=== PATIENT | female | born 1950 | race Caucasian/White ===

== ENCOUNTER → 2022-09-01 09:50 | Outpatient (BNV) | payer MEDICARE, SELFPAY | PROVIDERS: PCP Family Medicine; Referring Provider Internal Medicine Pulmonary Disease; Visit Provider Internal Medicine Medical Oncology | DX: I26.99 Other pulmonary embolism without acute cor pulmonale (principal) | CPT/HCPCS: 99204; 99213; 99214 ==

== ENCOUNTER 2022-09-15 12:55 | Outpatient (REF) | payer MEDICARE, SELFPAY ==
--- NOTE | ~2022-09-15 | US_ITS ---
EXAMINATION: US SOFT TISSUE, RIGHT AXILLA US SOFT TISSUE, LEFT CHEST WALL CLINICAL INFORMATION: Bilateral mastectomy 2021 ([facility] – [place] Patient notes fullness anterior lateral left chest for several months, initially noted around June (on anticoagulant at that time). Clinical exam also notes focal fullness right axilla. Assess with ultrasound. COMPARISON: Outside CT chest noncontrast 09/12/2022 ([facility] [place]). TECHNIQUE: Bilateral ultrasound is targeted to the areas of clinical concern using grayscale imaging and color Doppler without and with harmonics. Patient is able to point areas of concern at time of imaging. Right axilla is imaged both supine and upright. FINDINGS: Right: There is no cystic or solid mass, architectural abnormality or lymphadenopathy. No skin thickening or edema tracking in soft tissue planes. Several benign nodes with normal [place] architecture are demonstrated, similar to the recent outside CT. The palpable concern corresponds to a normal axillary lymph node measuring 0.8 cm short axis with normal [place] architecture. Left: The palpable fullness anterior lateral left chest corresponds to a spindle-shaped heterogeneous predominantly cystic avascular mass within the soft tissues measuring approximately 1.3 cm in thickness, 8 cm across, and 8 cm in vertical dimension. There is no internal or peripheral color flow. Margins are smooth and well-circumscribed. Similar findings noted on outside CT chest. This most likely represents a benign hematoma chest wall. Results are discussed with the patient at time of visit. US/US breast RT limited IMPRESSION: Right: -Palpable concern corresponds to a benign axillary node 0.8 cm short axis. Left: -Palpable concern corresponds to a spindle-shaped superficial predominantly cystic avascular lesion. Given the clinical history, this is believed to represent a hematoma.
--- NOTE | ~2022-09-15 | US_ITS ---
EXAMINATION: US SOFT TISSUE, RIGHT AXILLA US SOFT TISSUE, LEFT CHEST WALL CLINICAL INFORMATION: Bilateral mastectomy 2021 ([facility] – [place], [place] Patient notes fullness anterior lateral left chest for several months, initially noted around June (on anticoagulant at that time). Clinical exam also notes focal fullness right axilla. Assess with ultrasound. COMPARISON: Outside CT chest noncontrast 09/12/2022 ([facility]). TECHNIQUE: Bilateral ultrasound is targeted to the areas of clinical concern using grayscale imaging and color Doppler without and with harmonics. Patient is able to point areas of concern at time of imaging. Right axilla is imaged both supine and upright. FINDINGS: Right: There is no cystic or solid mass, architectural abnormality or lymphadenopathy. No skin thickening or edema tracking in soft tissue planes. Several benign nodes with normal [place] architecture are demonstrated, similar to the recent outside CT. The palpable concern corresponds to a normal axillary lymph node measuring 0.8 cm short axis with normal [place] architecture. Left: The palpable fullness anterior lateral left chest corresponds to a spindle-shaped heterogeneous predominantly cystic avascular mass within the soft tissues measuring approximately 1.3 cm in thickness, 8 cm across, and 8 cm in vertical dimension. There is no internal or peripheral color flow. Margins are smooth and well-circumscribed. Similar findings noted on outside CT chest. This most likely represents a benign hematoma chest wall. Results are discussed with the patient at time of visit. US/US breast LT limited IMPRESSION: Right: -Palpable concern corresponds to a benign axillary node 0.8 cm short axis. Left: -Palpable concern corresponds to a spindle-shaped superficial predominantly cystic avascular lesion. Given the clinical history, this is believed to represent a hematoma.
== END 2022-09-15 12:56 | disposition home or self-care (01) ==
LOC: HO.MAMMO 12:55
PROVIDERS: Visit Provider Internal Medicine Medical Oncology
DX: N64.89 Other specified disorders of breast (principal)
CPT/HCPCS: 76642

== ENCOUNTER 2023-01-19 12:07 | Outpatient (REF) | payer MEDICARE, SELFPAY ==
--- NOTE | ~2023-01-19 | XR_ITS ---
EXAMINATION: XR LUMBOSACRAL SPINE CLINICAL INFORMATION: Scoliosis COMPARISON: None available. TECHNIQUE: Three views of the lumbosacral spine. FINDINGS: There is a thoracolumbar dextroscoliosis. No acute lumbar compression fractures seen. S1 may be a transitional vertebra. There is multilevel degenerative disc space narrowing. In addition, there is multilevel spondylosis and facet arthrosis. The sacrum is grossly intact. XR/XR lumbar spine 2-3V IMPRESSION: 1. No acute compression fractures. Multilevel degenerative disc space narrowing. 2. Multilevel spondylosis and facet arthrosis. Thoracolumbar dextroscoliosis.
--- NOTE | ~2023-01-19 | XR_ITS ---
EXAMINATION: XR THORACIC SPINE CLINICAL INFORMATION: Scoliosis COMPARISON: CT August 2022 at an outside center. TECHNIQUE: 3 views of the thoracic spine were obtained. FINDINGS: There is an S shaped thoracic scoliosis observed. Slight anterolisthesis C7-T1 and T1-T2. No acute thoracic compression fractures observed. Small endplate spondylitic changes seen. There is multilevel eccentric degenerative disc space narrowing, most pronounced at the approximate T10-T11 level. Postsurgical changes observed superimposing the right hilum and the right cardiac shadow. XR/XR thoracic spine 3V IMPRESSION: 1. S shaped thoracic scoliosis. Slight anterolisthesis C7-T1 and T1-T2. 2. No acute compression fractures. 3. Multilevel degenerative disc space narrowing, most pronounced at the approximate T10-T11 level.
== END 2023-01-19 12:08 | disposition home or self-care (01) ==
LOC: HO.XRAY 12:07
PROVIDERS: Visit Provider Internal Medicine Medical Oncology
DX: M41.9 Scoliosis, unspecified (principal)
CPT/HCPCS: 72072; 72100

== ENCOUNTER 2023-02-07 10:02 | Day surgery (SDC) | payer MEDICARE, SELFPAY ==
--- NOTE | 2023-02-06 10:28 | P.CONAN_ITS ---
Documented by User: Cora Arana NP 02/06/23 10:41 HPI - Anesthesia Eval Consult details Narrative: 72yo F for Upper Endoscopy with Balloon Dilitation Hx of PE/DVT d/t chemo 05/2022. Previously on eliquis, completed tx 08/2022 ? Cardiac arrest r/t chemo 2014 - required epi and O2, no admission. No cardiac ds, does not follow supervisor heading. No adverse reaction to anesthesia. Had port removed recently without issue. AAA with yearly screening through PCP. No change from original finding in 2014. [facility] Active Problems Active Problems: All Active Problems (Updated 02/06/23 @ 06:47 by Tess Mccurdy RN) Bilateral pulmonary embolism (Acute) Past Medical History Medical History Pulmonary embolism Cardiac arrest History of hiatal hernia Weakness Visual impairment Snoring Pneumonia RITA (obstructive sleep apnea) Neuropathy Malignant neoplasm Legal blindness Hypertensive disorder Hyperlipidemia Hypercholesterolemia History of radiation therapy History of chemotherapy Hiatal hernia Headache GERD (gastroesophageal reflux disease) Fibromyalgia Dysphagia Disorder of thyroid Continuous positive airway pressure dependence CVA (cerebral vascular accident) Arthritis Acute respiratory infection (~2019) AAA (abdominal aortic aneurysm) Family History Family History Mother Breast cancer Father No problems noted. Maternal Grandmother Colon cancer Family history of problems with anesthesia: No Surgical History Surgical History History of tonsillectomy History of sinus surgery History of removal of Port-a-Cath History of mastectomy History of eye surgery History of strabismus surgery History of dilatation and curettage History of cardiac catheterization History of lumpectomy of left breast H/O lymph node biopsy History of abdominal surgery History of Problems with Anesthesia: No Social History Social History Household Members: None Are you a primary child care leader to a significant other at home: No Do you presently have visiting nurse or other home services: No Patient Tobacco Use Status: Never used Tobacco Have you been hit, kicked, punched, or otherwise hurt by someone within the past year? If so, by whom?: No Are you DNR?: No Advance Directives: No Advance Directives Information Provided: Yes Recently lost weight without trying: No Eating poorly because of decreased appetite: No Nutrition Risks: No Nutritional Risk Patient : No Gender identity: Female Meds Allergies Allergy/AdvReac Type Severity Reaction Status Date / Time doxorubicin [From Adriamycin] Allergy Severe Unresponsiv Verified 01/06/23 10:34 e cortisone Allergy Unknown Verified 01/06/23 10:34 house dust mite Allergy Runny Nose Verified 01/06/23 10:34 mold Allergy Runny Nose Verified 01/06/23 10:34 paclitaxel Allergy Unknown Verified 01/06/23 10:34 Home Medications Medication Instructions Recorded Confirmed Last Taken Type calcium carbonate 500 mg-vitamin 1 tab PO DAILY 08/22/22 01/06/23 Unknown History D3 5 mcg (200 unit) tablet carvedilol 6.25 mg tablet 6.25 mg PO DAILY 08/22/22 01/06/23 Unknown History levothyroxine 88 mcg tablet 88 mcg PO DAILY 08/22/22 01/06/23 Unknown History lutein 6 mg tablet 6 mg PO DAILY 08/22/22 01/06/23 Unknown History magnesium oxide 400 mg PO DAILY 08/22/22 01/06/23 Unknown History zinc sulfate 50 mg zinc (220 mg) 50 mg PO DAILY 08/22/22 01/06/23 Unknown History capsule Exam Exam Date and Time: February 06, 2023 102 Pertinent Lab Results Pertinent Lab Results: Laboratory Tests 01/06/23 10:30 WBC 5.9 Hgb 12.5 Hct 37.7 Plt Count 241 Sodium 139 Potassium 4.6 Chloride 106 Carbon Dioxide 24 BUN 26 H Creatinine 0.94 Assessment and Plan Assessment Anesthesia Assessment: Chart Reviewed Final Anesthetic Review Family History of Problems with Anesthesia: No History of Problems with Anesthesia: No Documented by User: Derek Clinton MD 02/07/23 11:45 PMFSH Past Medical History Medical History Pulmonary embolism Cardiac arrest History of hiatal hernia Weakness Visual impairment Snoring Pneumonia RITA (obstructive sleep apnea) Neuropathy Malignant neoplasm Legal blindness Hypertensive disorder Hyperlipidemia Hypercholesterolemia History of radiation therapy History of chemotherapy Hiatal hernia Headache GERD (gastroesophageal reflux disease) Fibromyalgia Dysphagia Disorder of thyroid Continuous positive airway pressure dependence CVA (cerebral vascular accident) Arthritis Acute respiratory infection (~2019) AAA (abdominal aortic aneurysm) Family History Family History Mother Breast cancer Father No problems noted. Maternal Grandmother Colon cancer Surgical History Surgical History History of tonsillectomy History of sinus surgery History of removal of Port-a-Cath History of mastectomy History of eye surgery History of strabismus surgery History of dilatation and curettage History of cardiac catheterization History of lumpectomy of left breast H/O lymph node biopsy History of abdominal surgery Social History Social History Household Members: None Are you a primary child care leader to a significant other at home: No Do you presently have visiting nurse or other home services: No Patient Tobacco Use Status: Never used Tobacco Have you been hit, kicked, punched, or otherwise hurt by someone within the past year? If so, by whom?: No Are you DNR?: No Advance Directives: No Advance Directives Information Provided: Yes Recently lost weight without trying: No Eating poorly because of decreased appetite: No Nutrition Risks: No Nutritional Risk Patient : No Gender identity: Female Meds Allergies Allergy/AdvReac Type Severity Reaction Status Date / Time doxorubicin [From Adriamycin] Allergy Severe Unresponsiv Verified 01/06/23 10:34 e cortisone Allergy Unknown Verified 01/06/23 10:34 house dust mite Allergy Runny Nose Verified 01/06/23 10:34 mold Allergy Runny Nose Verified 01/06/23 10:34 paclitaxel Allergy Unknown Verified 01/06/23 10:34 Home Medications Medication Instructions Recorded Confirmed Last Taken Type calcium carbonate 500 mg-vitamin 1 tab PO DAILY 08/22/22 01/06/23 Unknown Histor y D3 5 mcg (200 unit) tablet carvedilol 6.25 mg tablet 6.25 mg PO DAILY 08/22/22 01/06/23 Unknown History levothyroxine 88 mcg tablet 88 mcg PO DAILY 08/22/22 01/06/23 Unknown History lutein 6 mg tablet 6 mg PO DAILY 08/22/22 01/06/23 Unknown History magnesium oxide 400 mg PO DAILY 08/22/22 01/06/23 Unknown History zinc sulfate 50 mg zinc (220 mg) 50 mg PO DAILY 08/22/22 01/06/23 Unknown History capsule Exam Airway Mallampati Class: II TM Dist: >3cm Neck ROM: Limited Heart: rrr Lungs: cta Assessment and Plan Assessment Anesthesia Assessment: Anesthesia Plan Discussed Final Anesthetic Review NPO: Yes ASA Class: IV Final Preanesthetic Review: No Changes in Pt Med Stat, Meds/Allgs Chart Reviewed, Consent Obtained/Reviewed and Anes Risks/Benef Reviewed Patient Risk: Intermediate Procedure Risk: Intermediate Anesthetic Plan Anesthetic Plan: MAC: and Agree w/ Assess. and Plan Disposition: Standard PACU
[2023-02-07 11:16] VITALS: BP 116/74; PULSE 73; RESP 18; TEMP 36.4; O2SAT 98; BMI 28.3
--- NOTE | 2023-02-07 11:55 | MHC.SHP ---
Pre-Procedural Eval Section A Date of Service: 02/07/23 The patient is an INPATIENT: No Changes since office visit: No Cold of Flu in the past 2 weeks, No New Medical Problems, No Changes in Medication and No Patient answered all questions The History & Physical has been completed within 30 days and I have reviewed it.: Yes Section B Chief Complaint: Esophageal obstruction, other dysphagia Allergies: Allergies Allergy/AdvReac Type Severity Reaction Status Date / Time doxorubicin [From Adriamycin] Allergy Severe Unresponsiv Verified 01/06/23 10:34 e cortisone Allergy Unknown Verified 01/06/23 10:34 house dust mite Allergy Runny Nose Verified 01/06/23 10:34 mold Allergy Runny Nose Verified 01/06/23 10:34 paclitaxel Allergy Unknown Verified 01/06/23 10:34 Plan I have reviewed the history and physical and performed a pertinent physical examination on my patient. No changes have occurred unless specified. Time Spent With Patient Time: Total time managing care of this patient today ____ minutes.
--- NOTE | 2023-02-07 12:31 | PM.OP ---
Brief Operative Note Date of Service: 02/07/23 Pre-op diagnosis: dysphagia Post-op diagnosis: same Procedure: EGD Surgeon: Jd Tripp Anesthesia: MAC Was an Volumetric Weigher used for this Procedure?: No Estimated blood loss (mL): 2 Pathology: other Condition: stable Disposition: PACU
[2023-02-07 12:34] VITALS: BP 107/59; PULSE 69; RESP 16; TEMP 36.7; O2SAT 98
--- NOTE | 2023-02-07 12:46 | OP_ITS ---
DATE OF SERVICE: 02/07/2023 SURGEON: Jd Tripp MD INDICATIONS: Dysphagia and history of Schatzki ring. PREOPERATIVE DIAGNOSIS: POSTOPERATIVE DIAGNOSIS: PROCEDURE PERFORMED: Upper endoscopy with balloon dilation and biopsy. ESTIMATED BLOOD LOSS: COMPLICATIONS: ANESTHESIA: Monitored anesthesia care. ASSISTANTS: SPECIMENS: DESCRIPTION OF PROCEDURE: A history and physical was performed. The risks and benefits of the procedure were explained to the patient. Informed consent was obtained. The patient was placed in the left lateral decubitus position. The Olympus video gastroscope was introduced into the esophagus, stomach, and duodenum. Examination was performed. The scope was removed. She tolerated the procedure well and was returned to the recovery area in stable condition. FINDINGS: Esophagus: There was a nonobstructive Schatzki ring at the EG junction. The scope easily passed through this. Balloon dilation of the Schatzki ring was performed at 18 and 20 mm with a balloon passed through the scope and inflated to its recommended pressure for 60 seconds. The ring was widely patent at the termination of the procedure. Stomach: There was a small hiatal hernia with several erosions at the level of the hiatal hernia. Antral biopsies were obtained. Duodenum: The bulb and 2nd portion were normal. IMPRESSION: 1. Schatzki ring. 2. Hiatal hernia. RECOMMENDATION: Follow up the biopsy results. MD POLLO Hester/ANNETTEL / [id number]
[2023-02-07 12:49] VITALS: BP 101/67; PULSE 80; RESP 22; O2SAT 98
[2023-02-07 12:57] VITALS: BP 115/73; PULSE 67; RESP 16; TEMP 36.7; O2SAT 97
== END 2023-02-07 13:45 | disposition home or self-care (01) ==
PROVIDERS: PCP Family Medicine; Visit Provider Internal Medicine Gastroenterology
PROC: (CPT 43249; principal; 2023-02-07 11:30)
DX: R13.19 Other dysphagia (principal); K22.2 Esophageal obstruction; K44.9 Diaphragmatic hernia without obstruction or gangrene; I69.354 Hemiplegia and hemiparesis following cerebral infarction affecting left non-dominant side; I10 Essential (primary) hypertension; G62.9 Polyneuropathy, unspecified; Z85.3 Personal history of malignant neoplasm of breast; Z90.13 Acquired absence of bilateral breasts and nipples; Z92.21 Personal history of antineoplastic chemotherapy; Z92.3 Personal history of irradiation; Z86.711 Personal history of pulmonary embolism; G47.33 Obstructive sleep apnea (adult) (pediatric); Z79.899 Other long term (current) drug therapy; Z99.89 Dependence on other enabling machines and devices
CPT/HCPCS: 43249; 43239; 88305; 88342; C1726

== ENCOUNTER 2023-07-26 08:07 | Outpatient (REF) | payer MEDICARE, SELFPAY ==
--- NOTE | ~2023-07-26 | XR_ITS ---
EXAMINATION: 1. RADIOGRAPHS RIGHT KNEE 2. RADIOGRAPHS LEFT KNEE CLINICAL INFORMATION: Bilateral knee pain COMPARISON: None TECHNIQUE: 3 views of each knee were obtained FINDINGS: Right knee: No fracture or dislocation. Small suprapatellar joint effusion. Mild narrowing of the medial joint space height. Small tricompartmental marginal osteophytes. Mild soft tissue swelling the anterior knee. Left knee: No fracture or dislocation. No suprapatellar joint effusion. Minimal narrowing of the medial joint space height.. Small tricompartmental marginal osteophytes. Minimal soft tissue swelling of the anterior knee. XR/XR knee LT 3V IMPRESSION: Mild degenerative changes of both knees, slightly more prominent on the right.
--- NOTE | ~2023-07-26 | XR_ITS ---
EXAMINATION: 1. RADIOGRAPHS RIGHT KNEE 2. RADIOGRAPHS LEFT KNEE CLINICAL INFORMATION: Bilateral knee pain COMPARISON: None TECHNIQUE: 3 views of each knee were obtained FINDINGS: Right knee: No fracture or dislocation. Small suprapatellar joint effusion. Mild narrowing of the medial joint space height. Small tricompartmental marginal osteophytes. Mild soft tissue swelling the anterior knee. Left knee: No fracture or dislocation. No suprapatellar joint effusion. Minimal narrowing of the medial joint space height.. Small tricompartmental marginal osteophytes. Minimal soft tissue swelling of the anterior knee. XR/XR knee RT 3V IMPRESSION: Mild degenerative changes of both knees, slightly more prominent on the right.
--- NOTE | ~2023-07-26 | XR_ITS ---
EXAMINATION: XR SCOLIOSIS SERIES CLINICAL INFORMATION: Scoliosis. COMPARISON: Thoracic and lumbar spine radiographs 01/19/2023. TECHNIQUE: Standing upright PA and lateral radiographs of the total spine were obtained. FINDINGS: There are 12 rib-bearing thoracic vertebra and 5 nonrib-bearing lumbar vertebra. Cervical spinal segmentation cannot be assessed on this examination due to acquisition technique. There is no identifiable dysraphism. Global parmeters Coronal truncal balance: 1.3 cm positive Coronal regional parameters (Ramirez angle) Primary curve: 27 degrees, apex right at L2 Secondary curve: 12 degrees, apex left at T10 Lungs are clear and well expanded. No focal consolidative disease, pleural effusion, or pneumothorax. The cardiac silhouette and upper mediastinal contours are normal. Visualized bowel gas pattern is normal. Solid organ contours are normal. No worrisome lytic or blastic osseous lesion within the ftctv-ex-hccv of this examination. XR/XR scoliosis survey IMPRESSION: Spinal scoliosis as described above.
== END 2023-07-26 08:08 | disposition home or self-care (01) ==
LOC: HO.HOSX 08:07
PROVIDERS: PCP Family Medicine; Visit Provider Physical Medicine & Rehabilitation
DX: M25.50 Pain in unspecified joint (principal); M25.561 Pain in right knee; M25.562 Pain in left knee; M54.50 Low back pain, unspecified; G89.29 Other chronic pain; M41.9 Scoliosis, unspecified; G62.9 Polyneuropathy, unspecified; M79.7 Fibromyalgia; Z92.21 Personal history of antineoplastic chemotherapy; Z86.73 Personal history of transient ischemic attack (TIA), and cerebral infarction without residual deficits
CPT/HCPCS: 72082; 73562; 99202

== ENCOUNTER 2023-07-26 08:07 | Outpatient (AMB) | payer MEDICARE, SELFPAY ==
[2023-07-26 08:27] VITALS: BMI 29.3
--- NOTE | 2023-07-26 08:27 | A.OFFVIS_ITS ---
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 She has had ongoing lower back pain for many years now (20+) she has an extensive medical history Pulmonary Emboli, Bilateral DVT, Breast Cancer, Fibromyalgia, Thyroid Disease, Scoliosis. She was referred by Dr. Jacobs She has been previously treated with a chiropractor which was not helpful (2004). She had multiple flair ups of sciatic pain over the years. History of acupuncture which was very very helpful, but she has not been in some time as she moved. She has pain in the lower back at all times, she explains that her history of strokes has caused her left ankle to become weak and rolls. 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 She had done signifcant Physical therapy he help her regain functions. Allergies doxorubicin [From Adriamycin] Allergy (Severe, Verified 07/11/23 09:35) Unresponsive cortisone Allergy (Verified 07/11/23 09:35) Unknown house dust mite Allergy (Verified 07/11/23 09:35) Runny Nose mold Allergy (Verified 07/11/23 09:35) Runny Nose paclitaxel Allergy (Verified 07/11/23 09:35) Unknown HPI HPI Comments History of Present Illness Details History of stroke 2000, 2017 (TIAs), left sided residuals/left foot; PE but not on anticoagulation; chest hematoma side effect from blood thinner 2022; breast CA 2014 lumpectomy and radiation, recurrence 2021 s/p double mastectomy, chemotherapy. History of Sciatica in 1969-s. Patient denies having same type of sciatica now. Baseline left foot numbness from stroke. But now numbness also on both hands, attributed from chemotherapy. Question history of RA -mentioned by a curatorial assistant in [place]? Moved here a year ago, from [facility]. Oncologist now is Dr. Jacobs. PCP is Dr. Macarena Snow. She drives. Uses walker. Lower back, going more right side, leg cramps bilateral. Cramps can occur at night or even during the day, while seated. When she walks, feels like leg loses sensation and may give out, described as warmth. ROS - upper back/trapezius itch? - myofascial knee pain - from falls in past Treatment: does exercises in residence home massage therapy, acupuncture (helped), chiropractor back in - saw physiatry for fibromyalgia and pain, did exercises, pain med (tramadol) ibuprofen prn last PT 2020 no injections no recent lumbar MRI wears orthotics - helping with standing up straight [facility] Medical History (Updated 07/26/23 @ 09:25 by Hui Li MD) Chronic back pain Pulmonary embolism Cardiac arrest History of hiatal hernia Weakness Visual impairment Snoring Pneumonia RITA (obstructive sleep apnea) Neuropathy Malignant neoplasm Legal blindness Hypertensive disorder Hyperlipidemia Hypercholesterolemia History of radiation therapy History of chemotherapy Hiatal hernia Headache GERD (gastroesophageal reflux disease) Fibromyalgia Dysphagia Disorder of thyroid Continuous positive airway pressure dependence CVA (cerebral vascular accident) Arthritis Acute respiratory infection (~2018) AAA (abdominal aortic aneurysm) Surgical History History of tonsillectomy History of sinus surgery History of removal of Port-a-Cath History of mastectomy History of eye surgery History of strabismus surgery History of dilatation and curettage History of cardiac catheterization History of lumpectomy of left breast H/O lymph node biopsy History of abdominal surgery Family History Mother Breast cancer Father No problems noted. Maternal Grandmother Colon cancer Social History Household Members: None Are you a primary career technical education teacher to a significant other at home: No Do you presently have visiting nurse or other home services: No Patient Tobacco Use Status: Never used Tobacco Gender identity: Female Review of Systems Const All systems reviewed & are unremarkable except as noted in HPI and below Physical Exam Vital Signs: BMI result Body Mass Index 29.3 Constitutional: Patient appears to be in no acute distress, well nourished and well developed. Patient was appropriately conversant and oriented. Good historian. MSK: Negative spurling sign. Cervical ROM still within normal. Lumbar ROM deferred. Tightness noted on right upper trapezius. Diffusely tender almost everywhere but most tender on right SI region and right GT. Strength is 5/5 in all muscle groups tested. No increased tone noted. Neurological: Left dorsiflexion 3+/5 but rest of MMT 5/5. Ziegler?s negative bilaterally. Babinski was down going bilaterally. Clonus was negative. Uses walker. Results Reviewed Results Reviewed: I independently reviewed the results of the following: No significant scoliosis seen on thoracic and lumbar x-rays. Loss of disc space noted L4-5 L5-S1. Ordering Physician: Derek Jacobs MD Date of Service: 01/19/23 Procedure(s): XR lumbar spine 2-3V Accession Number(s): [id number] cc: Derek Jacobs MD~ EXAMINATION: XR LUMBOSACRAL SPINE CLINICAL INFORMATION: Scoliosis COMPARISON: None available. TECHNIQUE: Three views of the lumbosacral spine. FINDINGS: There is a thoracolumbar dextroscoliosis. No acute lumbar compression fractures seen. S1 may be a transitional vertebra. There is multilevel degenerative disc space narrowing. In addition, there is multilevel spondylosis and facet arthrosis. The sacrum is grossly intact. XR/XR lumbar spine 2-3V IMPRESSION: 1. No acute compression fractures. Multilevel degenerative disc space narrowing. 2. Multilevel spondylosis and facet arthrosis. Thoracolumbar dextroscoliosis. Ordering Physician: Derek Jacobs MD Date of Service: 01/19/23 Procedure(s): XR thoracic spine 3V Accession Number(s): [id number] cc: Derek Jacobs MD~ EXAMINATION: XR THORACIC SPINE CLINICAL INFORMATION: Scoliosis COMPARISON: CT August 2022 at an outside center. TECHNIQUE: 3 views of the thoracic spine were obtained. FINDINGS: There is an S shaped thoracic scoliosis observed. Slight anterolisthesis C7-T1 and T1-T2. No acute thoracic compression fractures observed. Small endplate spondylitic changes seen. There is multilevel eccentric degenerative disc space narrowing, most pronounced at the approximate T10-T11 level. Postsurgical changes observed superimposing the right hilum and the right cardiac shadow. XR/XR thoracic spine 3V IMPRESSION: 1. S shaped thoracic scoliosis. Slight anterolisthesis C7-T1 and T1-T2. 2. No acute compression fractures. 3. Multilevel degenerative disc space narrowing, most pronounced at the approximate T10-T11 level. I reviewed records from the following: Dr. Jacobs Assessment & Plan Assessment & Plan (1) Chronic back pain: Code(s): M54.9 - Dorsalgia, unspecified; G89.29 - Other chronic pain Qualifiers: Back pain laterality: left Back pain location: low back pain Sciatica presence: without sciatica Qualified Code(s): M54.50 - Low back pain, unspecified; G89.29 - Other chronic pain (2) Arthralgia of knee: Code(s): M25.569 - Pain in unspecified knee Qualifiers: Laterality: bilateral Qualified Code(s): M25.561 - Pain in right knee; M25.562 - Pain in left knee (3) Scoliosis: Code(s): M41.9 - Scoliosis, unspecified Qualifiers: Scoliosis type: unspecified scoliosis Spinal region: thoracolumbar Qualified Code(s): M41.9 - Scoliosis, unspecified (4) Neuropathy: Comment: from chemo Code(s): G62.9 - Polyneuropathy, unspecified (5) Fibromyalgia: Code(s): M79.7 - Fibromyalgia (6) CVA (cerebral vascular accident): Comment: 2001 and 2013 slight left side weakness, again in 2017 and 2018 Code(s): I63.9 - Cerebral infarction, unspecified Qualifiers: CVA mechanism: other Qualified Code(s): I63.89 - Other cerebral infarction (7) History of chemotherapy: Code(s): Z92.21 - Personal history of antineoplastic chemotherapy Plan Chronic back pain, in setting of 73 year old with history of neuropathy, previous strokes with left sided residual, history of breast CA and chemotherapy. She is wondering about scoliosis and knee arthralgia. Complaining of leg cramps but denies radiculopathy signs. Would start with getting scoliosis series xray and knee xrays done today. Patient had undergone adequate conservative management without improvement of condition. It would be reasonable to obtain further imaging such as MRI. An MRI would help rule out any serious condition, guide treatment and assess prognosis for recovery. Specifically ruling out spinal stenosis that would cause claudication. Assessment and plan discussed with patient, and patient was agreeable. All questions were answered thoroughly. Total of 60 minute spent today including chart review, results review, history taking, physical examination, discussion of assessment and plan, and coordination of care. Hui Li MD, CORRINA Board Certified, [place] [employer] and [employer] (ABPMR) Board Certified, [place] [employer] Electro[employer] (ABEM) Orders: Orders XR scoliosis survey Today M41.9 - Scoliosis, unspecified XR knee RT 3V Today M25.569 - Pain in unspecified knee XR knee LT 3V Today M25.50 - Pain in unspecified joint MR lumbar spine wo con Today M48.061 - Spinal stenosis, lumbar region without neurogenic claudication Coding Level of Care Code New Pt Level 5 (70299) Diagnoses Chronic left-sided low back pain without sciatica M54.50; G89.29 Back pain laterality: left Back pain location: low back pain Sciatica presence: without sciatica Arthralgia of both knees M25.561; M25.562 Laterality: bilateral Scoliosis of thoracolumbar spine, unspecified scoliosis type M41.9 Scoliosis type: unspecified scoliosis Spinal region: thoracolumbar Neuropathy G62.9 Fibromyalgia M79.7 Cerebrovascular accident (CVA) due to other mechanism I63.89 CVA mechanism: other History of chemotherapy Z92.21
== END 2023-07-26 12:30 | disposition home or self-care (01) ==
PROVIDERS: PCP Family Medicine; Visit Provider Physical Medicine & Rehabilitation
DX: M54.50 Low back pain, unspecified (principal); G89.29 Other chronic pain; M25.561 Pain in right knee; M25.562 Pain in left knee; M41.9 Scoliosis, unspecified; G62.9 Polyneuropathy, unspecified; M79.7 Fibromyalgia; I63.89 Other cerebral infarction; Z92.21 Personal history of antineoplastic chemotherapy
CPT/HCPCS: 99205

== ENCOUNTER → 2023-08-17 07:14 | Outpatient (REF) | payer MEDICARE, SELFPAY ==
--- NOTE | ~2023-08-17 | MR_ITS ---
EXAMINATION: MR LUMBAR SPINE WITHOUT CONTRAST CLINICAL INFORMATION: Left leg weakness and numbness. Low back pain. COMPARISON: X-ray lumbar spine dated 01/19/2023. TECHNIQUE: Multiplanar, multisequence imaging was obtained. FINDINGS: VERTEBRAL BODIES AND PARASPINAL STRUCTURES: There is a moderate rightward curvature of the lumbar spine centered at the L2 level. No compression fractures are seen. There is significant multilevel disc space narrowing and reduced intradiscal signal with endplate Schmorl's nodes. Mild edematous endplate changes are visible at various levels. There are no compression fractures or significant subluxations. Similar loss of disc height with posterior disc bulges and facet arthropathy visible at the lower thoracic levels. Of note at the T11-T12 level, facet spurring results in significant right foraminal encroachment and potential impingement of the exiting right T11 nerve root. The paraspinal soft tissues appear normal. Numerous bilateral renal cysts are visualized, for which no further imaging followup is indicated. The visualized bony pelvis is unremarkable. CONUS MEDULLARIS AND CAUDA EQUINE: The distal cord, conus tip, and cauda equina nerve roots are normal. SPINAL LEVELS: T12-L1: Mild disc bulge and hypertrophic facet arthropathy with mild foraminal encroachment. No significant central canal stenosis. L1-L2: Mild disc bulge and facet arthropathy without central canal stenosis. Mild foraminal narrowing. L2-L3: Mild retrosubluxation and severe loss of disc height with a generalized disc bulge and endplate spurring. Mild facet arthropathy also noted. Findings result in mild central canal stenosis and mild foraminal narrowing. L3-L4: Severe disc space narrowing and broad-based disc bulge with endplate spurring. Hypertrophic facet arthropathy and mild central canal stenosis with [id number] foraminal narrowing. L4-L5: Endplate spurring and broad-based disc bulge with a mild posterior subluxation and moderate facet arthropathy. Findings result in [id number] central canal stenosis and mild foraminal narrowing. L5-S1: Severe loss of disc height with hypertrophic facet degeneration, bulging disc, and endplate spurring. Findings contribute to moderate central canal stenosis. Osseous spurring and bulging disc result in [id number] foraminal encroachment with compression of both exiting L5 nerve roots, worse on the right side. MR/MR lumbar spine wo con IMPRESSION: 1. Moderate rightward lumbar spinal curvature and severe multilevel degenerative disc disease. No compression fractures. Mild central canal stenosis at the L2-L3 and L3-L4 levels. [id number]-[id number] central canal stenosis at the L4-L5 level. 2. Moderate central canal stenosis at the L5-S1 level with significant foraminal encroachment and compression of both L5 nerve roots, more so on the right side. 3. Significant facet spurring on the right side at the T11-T12 level with potential impingement of the exiting right T11 nerve root.
--- NOTE | ~2023-08-17 | XR_ITS ---
STUDY: XR ORBITS PRE-MRI SCREENING. CLINICAL HISTORY: Detached retina. TECHNIQUE: 3 views of the orbits. COMPARISON: None. FINDINGS: No radiopaque metallic body is identified. The sella may be enlarged. Cannot exclude pituitary neoplasm. Approximately 2 cm left maxillary sinus retention cyst versus mucosal polyp. Mild deviation of the nasal septum toward the left. XR/XR pre mri screening IMPRESSION: The sella may be enlarged. Cannot exclude pituitary neoplasm. Recommend clinical correlation. Dedicated MRI of the pituitary gland may be of use for further evaluation if clinically indicated. No radiopaque metallic foreign body identified. Dr. Marinelli was directly informed of the findings by telephone at approximately 8:40 AM on 08/09/2023.
--- NOTE | ~2023-08-17 | NM_ITS ---
EXAMINATION: NM BONE SCAN OF THE WHOLE BODY CLINICAL INFORMATION: Back pain, history of breast cancer. COMPARISON: No previous bone scan is available for comparison. Scoliosis radiographic series and radiographs of the bilateral knees dated 07/26/2023 are available for comparison. Radiographs of the thoracic and lumbar spine dated 01/19/[address] scan of the chest dated 09/12/2022 are available for comparison. TECHNIQUE: Multiple gamma scintillation camera images of the whole body were performed 3 hours following the intravenous administration of 25 mCi Tc-99m MDP. FINDINGS: In the head, no significant abnormalities are present. In the thoracic cage and upper extremities, there is minimally increased activity in the acromioclavicular and sternoclavicular joints bilaterally and mildly increased activity in multiple periarticular foci in both hands are noted, most prominently in the first carpal metacarpal joints bilaterally. In the spine, there is a mild thoracolumbar scoliosis with upper lumbar convexity to the right. There is mildly increased activity across the full width of the lower thoracic spine likely in the T10 vertebral body. Is a focus of slightly more intense mild activity present in the left side of the L2 vertebra in the region of maximum concavity of the scoliosis. There is also minimally increased activity anteriorly in the right side of the lumbosacral junction. In the pelvis, no significant abnormalities are present. In the lower extremities, there is mildly increased activity diffusely in both knees and this is most intense in the patellae. There is a minimal diffuse increase in activity in the right ankle and proximal right foot compared to the left side and minimally increased activity is present in the first metatarsophalangeal joint regions bilaterally. No other definite bony abnormalities are noted. The urinary bladder and faint visualization of both kidneys are noted. The radiographs of the lumbar spine show scoliosis and degenerative changes at correspond to bone scan abnormalities described above. Radiographs of the bilateral knees dated 07/26/2023 show mild degenerative changes that corresponds to the bone scan abnormalities described above. NM/NM bone scan whole body IMPRESSION: Mild nonspecific abnormalities are noted as described above and these are all likely arthritic or traumatic in etiology. None of these abnormalities is strongly suspicious for metastatic disease.
== END ==
LOC: HO.NUCMED 07:14
PROVIDERS: PCP Family Medicine; Visit Provider Internal Medicine Medical Oncology
DX: M48.061 Spinal stenosis, lumbar region without neurogenic claudication (principal); M54.9 Dorsalgia, unspecified; C80.1 Malignant (primary) neoplasm, unspecified; Z85.3 Personal history of malignant neoplasm of breast
CPT/HCPCS: 72148; 78306; A9503

== ENCOUNTER 2023-08-17 07:21 | Outpatient (REF) | payer MEDICARE, SELFPAY | END 2023-08-17 07:22 | disposition home or self-care (01) | LOC: HO.MRI 07:21 | PROVIDERS: PCP Family Medicine; Visit Provider Physical Medicine & Rehabilitation | DX: Z13.89 Encounter for screening for other disorder (principal) ==

== ENCOUNTER 2023-08-23 09:16 | Outpatient (AMB) | payer MEDICARE, SELFPAY ==
--- NOTE | 2023-08-23 10:01 | MHC.OFFVIS ---
Intake Intake Visit Reasons: Spinal stenosis wo neuro claudication mri review Intake Note: Josephine is a 73 year old female who presents today for a MRI review of her lumbar spine. MRI was done on 08/17/23. Patient reports she is doing well, however she is still having constant pain in her back. Patient reports that she is unable to stand for too long or sit up straight in a chair. Allergies doxorubicin [From Adriamycin] Allergy (Severe, Verified 08/23/23 10:02) Unresponsive cortisone Allergy (Verified 08/23/23 10:02) Unknown house dust mite Allergy (Verified 08/23/23 10:02) Runny Nose mold Allergy (Verified 08/23/23 10:02) Runny Nose paclitaxel Allergy (Verified 08/23/23 10:02) Unknown Medication List - Last Reconciled 08/23/23 by Hui Li MD calcium carbonate-vitamin D3 500 mg-5 mcg (200 unit) 1 tab PO DAILY lutein 6 mg PO DAILY magnesium oxide 400 mg PO DAILY zinc sulfate 50 mg PO DAILY HPI HPI Comments History of Present Illness Details History of stroke 2000, 2017 (TIAs), left sided residuals/left foot; PE but not on anticoagulation; chest hematoma side effect from blood thinner 2022; breast CA 2014 lumpectomy and radiation, recurrence 2021 s/p double mastectomy, chemotherapy. History of Sciatica in 1969-. Patient denies having same type of sciatica now. Baseline left foot numbness from stroke. But now numbness also on both hands, attributed from chemotherapy. Question history of RA -mentioned by a deputy editor in chief in [place]? Moved here a year ago, from [facility]. Oncologist now is Dr. Jacobs. PCP is Dr. Macarena Snow. She drives. Uses walker. Lower back, going more right side, leg cramps bilateral. Cramps can occur at night or even during the day, while seated. When she walks, feels like leg loses sensation and may give out, described as warmth. ROS - upper back/trapezius itch? - myofascial knee pain - from falls in past Treatment: does exercises in residence home massage therapy, acupuncture (helped), chiropractor back in - saw physiatry for fibromyalgia and pain, did exercises, pain med (tramadol) ibuprofen prn last PT 2021 no injections no recent lumbar MRI wears orthotics - helping with standing up straight Last week, she had skull xray as screening prior to lumbar MRI. Radiologist read as possible pituitary finding. I informed Dr. Jacobs and patient. Bone scan - non specific findings, possible arthritis, no metastasis. I independently reviewed Lumbar MRI that showed facet degeneration, left L5-S1 disc herniation, right L4-5 disc herniation. Discussed and reviewed images today with patient. Scoliosis xray as below. Images reviewed. Knee xray showed mild DJD. Images reviewed. Most of her pain is axial low back. When she lays down, she could have intermittent cramps down legs, both sides. [facility] Medical History (Updated 08/23/23 @ 12:08 by Hui Li MD) Chronic back pain Pulmonary embolism Cardiac arrest History of hiatal hernia Weakness Visual impairment Snoring Pneumonia RITA (obstructive sleep apnea) Neuropathy Malignant neoplasm Legal blindness Hypertensive disorder Hyperlipidemia Hypercholesterolemia History of radiation therapy History of chemotherapy Hiatal hernia Headache GERD (gastroesophageal reflux disease) Fibromyalgia Dysphagia Disorder of thyroid Continuous positive airway pressure dependence CVA (cerebral vascular accident) Arthritis Acute respiratory infection (~2019) AAA (abdominal aortic aneurysm) Surgical History History of tonsillectomy History of sinus surgery History of removal of Port-a-Cath History of mastectomy History of eye surgery History of strabismus surgery History of dilatation and curettage History of cardiac catheterization History of lumpectomy of left breast H/O lymph node biopsy History of abdominal surgery Family History Mother Breast cancer Father No problems noted. Maternal Grandmother Colon cancer Social History Household Members: None Are you a primary health care recruiter to a significant other at home: No Do you presently have visiting nurse or other home services: No Patient Tobacco Use Status: Never used Tobacco Gender identity: Female Physical Exam Constitutional: Patient appears to be in no acute distress, well nourished and well developed. Patient was appropriately conversant and oriented. Good historian. Neurological: Uses walker. Results Reviewed Results Reviewed: Ordering Physician: Derek Jacobs MD Date of Service: 08/17/23 Procedure(s): NM bone scan whole body Accession Number(s): [id number] cc: Alison Snow MD; Derek Jacobs MD~ EXAMINATION: NM BONE SCAN OF THE WHOLE BODY CLINICAL INFORMATION: Back pain, history of breast cancer. COMPARISON: No previous bone scan is available for comparison. Scoliosis radiographic series and radiographs of the bilateral knees dated 07/26/2023 are available for comparison. Radiographs of the thoracic and lumbar spine dated 01/19/[address] scan of the chest dated 09/12/2022 are available for comparison. TECHNIQUE: Multiple gamma scintillation camera images of the whole body were performed 3 hours following the intravenous administration of 25 mCi Tc-99m MDP. FINDINGS: In the head, no significant abnormalities are present. In the thoracic cage and upper extremities, there is minimally increased activity in the acromioclavicular and sternoclavicular joints bilaterally and mildly increased activity in multiple periarticular foci in both hands are noted, most prominently in the first carpal metacarpal joints bilaterally. In the spine, there is a mild thoracolumbar scoliosis with upper lumbar convexity to the right. There is mildly increased activity across the full width of the lower thoracic spine likely in the T10 vertebral body. Is a focus of slightly more intense mild activity present in the left side of the L2 vertebra in the region of maximum concavity of the scoliosis. There is also minimally increased activity anteriorly in the right side of the lumbosacral junction. In the pelvis, no significant abnormalities are present. In the lower extremities, there is mildly increased activity diffusely in both knees and this is most intense in the patellae. There is a minimal diffuse increase in activity in the right ankle and proximal right foot compared to the left side and minimally increased activity is present in the first metatarsophalangeal joint regions bilaterally. No other definite bony abnormalities are noted. The urinary bladder and faint visualization of both kidneys are noted. The radiographs of the lumbar spine show scoliosis and degenerative changes at correspond to bone scan abnormalities described above. Radiographs of the bilateral knees dated 07/26/2023 show mild degenerative changes that corresponds to the bone scan abnormalities described above. NM/NM bone scan whole body IMPRESSION: Mild nonspecific abnormalities are noted as described above and these are all likely arthritic or traumatic in etiology. None of these abnormalities is strongly suspicious for metastatic disease. Ordering Physician: Hui Holden Date of Service: 08/17/23 Procedure(s): MR lumbar spine wo con Accession Number(s): [id number] cc: Alison Snow MD; Hui Burrows EXAMINATION: MR LUMBAR SPINE WITHOUT CONTRAST CLINICAL INFORMATION: Left leg weakness and numbness. Low back pain. COMPARISON: X-ray lumbar spine dated 01/19/2023. TECHNIQUE: Multiplanar, multisequence imaging was obtained. FINDINGS: VERTEBRAL BODIES AND PARASPINAL STRUCTURES: There is a moderate rightward curvature of the lumbar spine centered at the L2 level. No compression fractures are seen. There is significant multilevel disc space narrowing and reduced intradiscal signal with endplate Schmorl's nodes. Mild edematous endplate changes are visible at various levels. There are no compression fractures or significant subluxations. Similar loss of disc height with posterior disc bulges and facet arthropathy visible at the lower thoracic levels. Of note at the T11-T12 level, facet spurring results in significant right foraminal encroachment and potential impingement of the exiting right T11 nerve root. The paraspinal soft tissues appear normal. Numerous bilateral renal cysts are visualized, for which no further imaging followup is indicated. The visualized bony pelvis is unremarkable. CONUS MEDULLARIS AND CAUDA EQUINE: The distal cord, conus tip, and cauda equina nerve roots are normal. SPINAL LEVELS: T12-L1: Mild disc bulge and hypertrophic facet arthropathy with mild foraminal encroachment. No significant central canal stenosis. L1-L2: Mild disc bulge and facet arthropathy without central canal stenosis. Mild foraminal narrowing. L2-L3: Mild retrosubluxation and severe loss of disc height with a generalized disc bulge and endplate spurring. Mild facet arthropathy also noted. Findings result in mild central canal stenosis and mild foraminal narrowing. L3-L4: Severe disc space narrowing and broad-based disc bulge with endplate spurring. Hypertrophic facet arthropathy and mild central canal stenosis with bmlb-ub-gjleaixy foraminal narrowing. L4-L5: Endplate spurring and broad-based disc bulge with a mild posterior subluxation and moderate facet arthropathy. Findings result in lfuo-yf-rnfiydfx central canal stenosis and mild foraminal narrowing. L5-S1: Severe loss of disc height with hypertrophic facet degeneration, bulging disc, and endplate spurring. Findings contribute to moderate central canal stenosis. Osseous spurring and bulging disc result in wedtpbrq-[id number] foraminal encroachment with compression of both exiting L5 nerve roots, worse on the right side. MR/MR lumbar spine wo con IMPRESSION: 1. Moderate rightward lumbar spinal curvature and severe multilevel degenerative disc disease. No compression fractures. Mild central canal stenosis at the L2-L3 and L3-L4 levels. Hvks-lt-xrotedcl central canal stenosis at the L4-L5 level. 2. Moderate central canal stenosis at the L5-S1 level with significant foraminal encroachment and compression of both L5 nerve roots, more so on the right side. 3. Significant facet spurring on the right side at the T11-T12 level with potential impingement of the exiting right T11 nerve root. Ordering Physician: Yasmany Marinelli MD Date of Service: 08/17/23 Procedure(s): XR pre mri screening Accession Number(s): [id number] cc: Yasmany Marinelli MD; Alison Snow MD; Hui Burrows STUDY: XR ORBITS PRE-MRI SCREENING. CLINICAL HISTORY: Detached retina. TECHNIQUE: 3 views of the orbits. COMPARISON: None. FINDINGS: No radiopaque metallic body is identified. The sella may be enlarged. Cannot exclude pituitary neoplasm. Approximately 2 cm left maxillary sinus retention cyst versus mucosal polyp. Mild deviation of the nasal septum toward the left. XR/XR pre mri screening IMPRESSION: The sella may be enlarged. Cannot exclude pituitary neoplasm. Recommend clinical correlation. Dedicated MRI of the pituitary gland may be of use for further evaluation if clinically indicated. No radiopaque metallic foreign body identified. Dr. Marinelli was directly informed of the findings by telephone at approximately 8:40 AM on 08/09/2023. Ordering Physician: Hui Holden Date of Service: 07/26/23 Procedure(s): XR scoliosis survey Accession Number(s): [id number] cc: Alison Snow MD; Hui Holden~ EXAMINATION: XR SCOLIOSIS SERIES CLINICAL INFORMATION: Scoliosis. COMPARISON: Thoracic and lumbar spine radiographs 01/19/2023. TECHNIQUE: Standing upright PA and lateral radiographs of the total spine were obtained. FINDINGS: There are 12 rib-bearing thoracic vertebra and 5 nonrib-bearing lumbar vertebra. Cervical spinal segmentation cannot be assessed on this examination due to acquisition technique. There is no identifiable dysraphism. Global parmeters Coronal truncal balance: 1.3 cm positive Coronal regional parameters (Ramirez angle) Primary curve: 27 degrees, apex right at L2 Secondary curve: 12 degrees, apex left at T10 Lungs are clear and well expanded. No focal consolidative disease, pleural effusion, or pneumothorax. The cardiac silhouette and upper mediastinal contours are normal. Visualized bowel gas pattern is normal. Solid organ contours are normal. No worrisome lytic or blastic osseous lesion within the tmweo-ez-ylzm of this examination. XR/XR scoliosis survey IMPRESSION: Spinal scoliosis as described above. Ordering Physician: Hui Holden Date of Service: 07/26/23 Procedure(s): XR knee LT 3V Accession Number(s): [id number] cc: Alison Snow MD; Hui Holden~ EXAMINATION: 1. RADIOGRAPHS RIGHT KNEE 2. RADIOGRAPHS LEFT KNEE CLINICAL INFORMATION: Bilateral knee pain COMPARISON: None TECHNIQUE: 3 views of each knee were obtained FINDINGS: Right knee: No fracture or dislocation. Small suprapatellar joint effusion. Mild narrowing of the medial joint space height. Small tricompartmental marginal osteophytes. Mild soft tissue swelling the anterior knee. Left knee: No fracture or dislocation. No suprapatellar joint effusion. Minimal narrowing of the medial joint space height.. Small tricompartmental marginal osteophytes. Minimal soft tissue swelling of the anterior knee. XR/XR knee LT 3V IMPRESSION: Mild degenerative changes of both knees, slightly more prominent on the right. Assessment & Plan Assessment & Plan (1) Lumbar facet joint pain: Code(s): M54.59 - Other low back pain (2) Chronic back pain: Code(s): M54.9 - Dorsalgia, unspecified; G89.29 - Other chronic pain Qualifiers: Back pain laterality: left Back pain location: low back pain Sciatica presence: without sciatica Qualified Code(s): M54.50 - Low back pain, unspecified; G89.29 - Other chronic pain (3) Arthralgia of knee: Code(s): M25.569 - Pain in unspecified knee Qualifiers: Laterality: bilateral Qualified Code(s): M25.561 - Pain in right knee; M25.562 - Pain in left knee (4) Scoliosis: Code(s): M41.9 - Scoliosis, unspecified Qualifiers: Idiopathic scoliosis type: other Spinal region: thoracolumbar Scoliosis type: idiopathic Qualified Code(s): M41.25 - Other idiopathic scoliosis, thoracolumbar region (5) Neuropathy: Comment: from chemo Code(s): G62.9 - Polyneuropathy, unspecified (6) Fibromyalgia: Code(s): M79.7 - Fibromyalgia (7) CVA (cerebral vascular accident): Comment: 2001 and 2013 slight left side weakness, again in 2017 and 2018 Code(s): I63.9 - Cerebral infarction, unspecified Qualifiers: CVA mechanism: other Qualified Code(s): I63.89 - Other cerebral infarction (8) History of chemotherapy: Code(s): Z92.21 - Personal history of antineoplastic chemotherapy Plan Chronic back pain, in setting of 73 year old with history of neuropathy, previous strokes with left sided residual, history of breast CA and chemotherapy. Scoliosis xray discussed. Lumbar MRI images viewed with patient. There are facet arthritis. There is also left L5-S1 disc herniation/bulge and right L4-5 disc herniation/bulge. Per history, axial back pain appears to be most bothersome for her. We talked about possible medial branch blocks and if helpful, consideration of radiofrequency ablation. She is at least curious about these. I would refer her to Pain Management. She wants to avoid epudural injection or any injection that has steroids, due to poor past experiences. She will follow up with Dr. Jacobs regarding findings on orbital xray. MRI brain is pending schedule. Reassured that no findings of metastasis seen on lumbar MRI. Knee xrays showed mild DJD. Not painful on regular basis. If becomes more bothersome again, can refer her to PT. Assessment and plan discussed with patient, and patient was agreeable. All questions were answered thoroughly. Total of 60 minute spent today including chart review, results review, history taking, physical examination, discussion of assessment and plan, and coordination of care. Hui Li MD, CORRINA Board Certified, [place] [employer] and [employer] (ABPMR) Board Certified, [place] Board [employer] Electro[employer] (ABEM) Orders: Referrals Pain Management Referral G89.29 - Other chronic pain, M54.59 - Other low back pain, M54.9 - Dorsalgia, unspecified Coding Level of Care Code Est Pt Level 4 (37940) Diagnoses Lumbar facet joint pain M54.59 Chronic left-sided low back pain without sciatica M54.50; G89.29 Back pain laterality: left Back pain location: low back pain Sciatica presence: without sciatica Arthralgia of both knees M25.561; M25.562 Laterality: bilateral Other idiopathic scoliosis, thoracolumbar region M41.25 Idiopathic scoliosis type: other Spinal region: thoracolumbar Scoliosis type: idiopathic Neuropathy G62.9 Fibromyalgia M79.7 Cerebrovascular accident (CVA) due to other mechanism I63.89 CVA mechanism: other History of chemotherapy Z92.21
== END 2023-08-23 10:44 | disposition home or self-care (01) ==
PROVIDERS: PCP Family Medicine; Visit Provider Physical Medicine & Rehabilitation
DX: M54.59 Other low back pain (principal); M54.50 Low back pain, unspecified; G89.29 Other chronic pain; M25.561 Pain in right knee; M25.562 Pain in left knee; M41.25 Other idiopathic scoliosis, thoracolumbar region; G62.9 Polyneuropathy, unspecified; M79.7 Fibromyalgia; I63.89 Other cerebral infarction; Z92.21 Personal history of antineoplastic chemotherapy
CPT/HCPCS: 99214

== ENCOUNTER → 2023-08-23 09:16 | Outpatient (BNVA) | payer MEDICARE, SELFPAY | PROVIDERS: PCP Family Medicine; Visit Provider Physical Medicine & Rehabilitation | DX: M54.59 Other low back pain (principal); M54.50 Low back pain, unspecified; M25.561 Pain in right knee; M25.562 Pain in left knee; M41.25 Other idiopathic scoliosis, thoracolumbar region; M79.7 Fibromyalgia; G62.9 Polyneuropathy, unspecified; G89.29 Other chronic pain; I63.89 Other cerebral infarction; Z92.21 Personal history of antineoplastic chemotherapy | CPT/HCPCS: 99212 ==

== ENCOUNTER 2023-08-29 13:40 | Outpatient (REF) | payer MEDICARE, SELFPAY ==
--- NOTE | ~2023-08-29 | MR_ITS ---
EXAMINATION: MR BRAIN WITHOUT AND WITH CONTRAST CLINICAL INFORMATION: Enlarged sella on x-rays of the orbit. Headache. COMPARISON: ORBIT radiographs dated 08/17/2023. TECHNIQUE: Multiplanar, multisequence MRI of the brain was obtained before and after the intravenous administration of 3.5 mL of Gadavist. FINDINGS: There is no area of abnormal restricted diffusion to indicate an acute/subacute cerebral or cerebellar infarction. There are numerous foci of abnormal increased T2/FLAIR signal intensity scattered throughout the subcortical and periventricular white matter of both cerebral hemispheres. These areas of abnormal signal intensity do not demonstrate mass effect, nor do they enhance. They are nonspecific in etiology, however, likely represent microvascular ischemic change. There is no midline shift or mass effect. There is no extra-axial fluid collection. Ventricular size is normal. There is no pathologic enhancement following the intravenous administration of contrast. Flow voids at the base of the brain are maintained. The orbits are symmetric and within normal limits. There is no left maxillary sinus mucosal disease. The mastoid air cells are clear. The pituitary gland is normal in size. There is a 2.6 mm focus of decreased differential enhancement within the anterior aspect of the right side of the pituitary gland which may represent a microadenoma. The pituitary infundibulum is midline. The optic chiasm is normal in appearance. MR/MR head/brain wo/w con IMPRESSION: The pituitary gland is normal in size. There is a 2.6 mm focus of decreased differential enhancement within the anterior aspect of the right side of the pituitary gland which may represent a microadenoma. The pituitary infundibulum is midline. The optic chiasm is normal in appearance. No evidence of acute/subacute cerebral or cerebellar infarction. There are numerous foci of abnormal increased T2/FLAIR signal intensity scattered throughout the subcortical and periventricular white matter of both cerebral hemispheres. These areas of abnormal signal intensity do not demonstrate mass effect, nor do they enhance. They are nonspecific in etiology, however, likely represent microvascular ischemic change.
[2023-08-29] MEDS: gadobutroL 2 ML VIAL IVPUSH ×2 (15:18→15:21)
== END 2023-08-29 13:41 | disposition home or self-care (01) ==
LOC: HO.MRI 13:40
PROVIDERS: PCP Family Medicine; Visit Provider Internal Medicine Medical Oncology
DX: R93.0 Abnormal findings on diagnostic imaging of skull and head, not elsewhere classified (principal)
CPT/HCPCS: 70553; A9585

== ENCOUNTER 2023-09-13 07:56 | Outpatient (AMB) | payer MEDICARE, SELFPAY ==
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
[2023-09-13 08:05] VITALS: BP 137/70; PULSE 72; RESP 14; O2SAT 97; BMI 28.9
== END 2023-09-13 08:58 | disposition home or self-care (01) ==
PROVIDERS: PCP Family Medicine; Visit Provider Internal Medicine
DX: M54.59 Other low back pain (principal); M51.36 Other intervertebral disc degeneration, lumbar region; M48.061 Spinal stenosis, lumbar region without neurogenic claudication; M54.51 Vertebrogenic low back pain
CPT/HCPCS: 99204

== ENCOUNTER → 2023-09-13 07:56 | Outpatient (BNVA) | payer MEDICARE, SELFPAY | PROVIDERS: PCP Family Medicine; Visit Provider Internal Medicine | DX: M54.59 Other low back pain (principal); M51.36 Other intervertebral disc degeneration, lumbar region; M48.061 Spinal stenosis, lumbar region without neurogenic claudication; M54.51 Vertebrogenic low back pain | CPT/HCPCS: 99202 ==

== ENCOUNTER 2023-09-27 09:17 | Outpatient (REF) | payer MEDICARE, SELFPAY ==
[2023-09-28 09:04] LABS: Prolactin 3.3 ng/mL
== END 2023-09-27 09:18 | disposition home or self-care (01) ==
LOC: HO.LAB 09:17
PROVIDERS: PCP Family Medicine; Visit Provider Psychiatry & Neurology Neurology
DX: D35.2 Benign neoplasm of pituitary gland (principal)
CPT/HCPCS: 36415; 84146

== ENCOUNTER 2023-09-29 12:47 | Outpatient (REF) | payer MEDICARE, SELFPAY ==
[2023-09-29 14:50] LABS: Blood Urea Nitrogen 19 mg/dL (9-16); Estimated Glomerular Filt Rate > 60
== END 2023-09-29 12:48 | disposition home or self-care (01) ==
LOC: HO.LAB 12:47
PROVIDERS: PCP Family Medicine; Visit Provider Psychiatry & Neurology Neurology
DX: H50.00 Unspecified esotropia (principal)
CPT/HCPCS: 36415; 82565; 84520

== ENCOUNTER 2024-02-28 07:27 | Day surgery (SDC) | payer MEDICARE, SELFPAY ==
[2024-02-26 14:48] VITALS: BMI 29.0
--- NOTE | 2024-02-27 08:52 | HO.ANESPROP2 ---
Documented by User: Cora Arana NP 02/27/24 08:56 HPI - Anesthesia Eval Consult details Narrative: 73yo F for Upper Endoscopy with Balloon Dilitation s/p same 01/2023 with TIVA without issue Hx of PE/DVT d/t chemo 05/2022. Previously on eliquis, completed tx 08/2022 ? Cardiac arrest r/t chemo 2014 - required epi and O2, no admission. 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 No adverse reaction to anesthesia. Had port removed recently without issue. AAA with yearly screening through PCP. No change from original finding in 2014. [facility], [facility] Active Problems Active Problems: All Active Problems Vertebrogenic low back pain (Acute) Lumbar spinal stenosis (Acute) Lumbar degenerative disc disease (Acute) Lumbar facet joint pain (Acute) Arthralgia of knee (Acute) Bilateral pulmonary embolism (Acute) Chronic back pain (Acute) CVA (cerebral vascular accident) (Acute) Fibromyalgia (Acute) History of chemotherapy (Acute) Neuropathy (Acute) Past Medical History Medical History Chronic back pain Pulmonary embolism Cardiac arrest History of hiatal hernia Weakness Visual impairment Snoring Pneumonia RITA (obstructive sleep apnea) Neuropathy Malignant neoplasm Legal blindness Hypertensive disorder Hyperlipidemia Hypercholesterolemia History of radiation therapy History of chemotherapy Hiatal hernia Headache GERD (gastroesophageal reflux disease) Fibromyalgia Dysphagia Disorder of thyroid Continuous positive airway pressure dependence CVA (cerebral vascular accident) Arthritis Acute respiratory infection (~2019) AAA (abdominal aortic aneurysm) Family History Family History Mother Breast cancer Father No problems noted. Maternal Grandmother Colon cancer Family history of problems with anesthesia: No Surgical History Surgical History History of esophagogastroduodenoscopy (EGD) History of tonsillectomy History of sinus surgery History of removal of Port-a-Cath History of mastectomy History of eye surgery History of strabismus surgery History of dilatation and curettage History of cardiac catheterization History of lumpectomy of left breast H/O lymph node biopsy History of abdominal surgery History of Problems with Anesthesia: No Social History Social History Household Members: None Household Members Other:: Independent Living facility Are you a primary career development coordinator to a significant other at home: No Do you presently have visiting nurse or other home services: No Patient Tobacco Use Status: Never used Tobacco Use of substances other than those prescribed or required for medical reasons: No Have you been hit, kicked, punched, or otherwise hurt by someone within the past year? If so, by whom?: No Are you DNR?: No Advance Directives: No Advance Directives Information Provided: Yes Recently lost weight without trying: No Nutrition Risks: No Nutritional Risk Gender identity: Female Meds Allergies Allergy/AdvReac Type Severity Reaction Status Date / Time doxorubicin [From Adriamycin] Allergy Severe Unresponsiv Verified 01/18/24 11:09 e cortisone Allergy Unknown Verified 01/18/24 11:09 house dust mite Allergy Runny Nose Verified 01/18/24 11:09 mold Allergy Runny Nose Verified 01/18/24 11:09 paclitaxel Allergy Unknown Verified 01/18/24 11:09 Home Medications ?Medication ?Instructions ?Recorded ?Confirmed ?Last Taken ?Type calcium carbonate 333 mg-magnesium 1 tab PO DAILY 02/26/24 02/26/24 Unknown History oxide 133 mg-zinc gluc 5 mg tablet cholecalciferol (vitamin D3) 10 20 mcg PO DAILY 02/26/24 02/26/24 Unknown History mcg (400 unit) capsule (Vitamin D3) vitamin B complex 1 tab PO DAILY 02/26/24 02/26/24 Unknown History zinc acetate 25 mg (zinc) capsule 25 mg PO DAILY 02/26/24 02/26/24 Unknown History Exam Height,Weight and Vital Signs: Height 5 ft Weight 67.302 kg Pertinent Lab Results Pertinent Lab Results: Laboratory Tests 01/18/24 11:02 WBC 6.7 Hgb 12.2 Hct 36.4 L Plt Count 241 Sodium 139 Potassium 4.1 Chloride 105 Carbon Dioxide 26 BUN 21 H Creatinine 0.99 Assessment and Plan Assessment Anesthesia Assessment: Chart Reviewed Final Anesthetic Review Family History of Problems with Anesthesia: No History of Problems with Anesthesia: No Documented by User: Florence Alejandre MD 02/28/24 13:54 PMFSH Past Medical History Medical History Chronic back pain Pulmonary embolism Cardiac arrest History of hiatal hernia Weakness Visual impairment Snoring Pneumonia RITA (obstructive sleep apnea) Neuropathy Malignant neoplasm Legal blindness Hypertensive disorder Hyperlipidemia Hypercholesterolemia History of radiation therapy History of chemotherapy Hiatal hernia Headache GERD (gastroesophageal reflux disease) Fibromyalgia Dysphagia Disorder of thyroid Continuous positive airway pressure dependence CVA (cerebral vascular accident) Arthritis Acute respiratory infection (~2019) AAA (abdominal aortic aneurysm) Family History Family History Mother Breast cancer Father No problems noted. Maternal Grandmother Colon cancer Surgical History Surgical History History of esophagogastroduodenoscopy (EGD) History of tonsillectomy History of sinus surgery History of removal of Port-a-Cath History of mastectomy History of eye surgery History of strabismus surgery History of dilatation and curettage History of cardiac catheterization History of lumpectomy of left breast H/O lymph node biopsy History of abdominal surgery Social History Social History Household Members: None Household Members Other:: Independent Living facility Are you a primary career development coordinator to a significant other at home: No Do you presently have visiting nurse or other home services: No Patient Tobacco Use Status: Never used Tobacco Use of substances other than those prescribed or required for medical reasons: No Have you been hit, kicked, punched, or otherwise hurt by someone within the past year? If so, by whom?: No Are you DNR?: No Advance Directives: No Advance Directives Information Provided: Yes Recently lost weight without trying: No Nutrition Risks: No Nutritional Risk Gender identity: Female Meds Allergies Allergy/AdvReac Type Severity Reaction Status Date / Time doxorubicin [From Adriamycin] Allergy Severe Unresponsiv Verified 01/18/24 11:09 e cortisone Allergy Unknown Verified 01/18/24 11:09 house dust mite Allergy Runny Nose Verified 01/18/24 11:09 mold Allergy Runny Nose Verified 01/18/24 11:09 paclitaxel Allergy Unknown Verified 01/18/24 11:09 Home Medications ?Medication ?Instructions ?Recorded ?Confirmed ?Last Taken ?Type calcium carbonate 333 mg-magnesium 1 tab PO DAILY 02/26/24 02/26/24 Unknown History oxide 133 mg-zinc gluc 5 mg tablet cholecalciferol (vitamin D3) 10 20 mcg PO DAILY 02/26/24 02/26/24 Unknown History mcg (400 unit) capsule (Vitamin D3) vitamin B complex 1 tab PO DAILY 02/26/24 02/26/24 Unknown History zinc acetate 25 mg (zinc) capsule 25 mg PO DAILY 02/26/24 02/26/24 Unknown History Exam Airway Mallampati Class: II TM Dist: <=3cm Neck ROM: Limited Heart: rrr Lungs: cta Assessment and Plan Assessment Anesthesia Assessment: Anesthesia Plan Discussed Final Anesthetic Review NPO: Yes ASA Class: III Final Preanesthetic Review: No Changes in Pt Med Stat, Meds/Allgs Chart Reviewed, Consent Obtained/Reviewed and Anes Risks/Benef Reviewed Patient Risk: Intermediate Procedure Risk: Low Anesthetic Plan Anesthetic Plan: MAC: Disposition: Standard PACU
[2024-02-28 09:57] VITALS: BMI 28.6
[2024-02-28 12:44] VITALS: BP 137/79; PULSE 72; RESP 18; TEMP 36.2; O2SAT 96
--- NOTE | 2024-02-28 12:49 | MHC.SHP ---
Pre-Procedural Eval Section A - 24 Hr Update-Section A only Date of Service: 02/28/24 The patient is an INPATIENT: No Changes since office visit: No Cold of Flu in the past 2 weeks, No New Medical Problems, No Changes in Medication and No Patient answered all questions The patient has been examined within 24 hours of the surgical procedure. The History & Physical has been completed within 30 days and I have reviewed it.: Yes Section B - Complete if H&P > 30 days Chief Complaint: Dysphagia, unspecified Allergies: Allergies Allergy/AdvReac Type Severity Reaction Status Date / Time doxorubicin [From Adriamycin] Allergy Severe Unresponsiv Verified 01/18/24 11:09 e cortisone Allergy Unknown Verified 01/18/24 11:09 house dust mite Allergy Runny Nose Verified 01/18/24 11:09 mold Allergy Runny Nose Verified 01/18/24 11:09 paclitaxel Allergy Unknown Verified 01/18/24 11:09 Plan I have reviewed the history and physical and performed a pertinent physical examination on my patient. No changes have occurred unless specified. Time Spent With Patient Time: Total time managing care of this patient today ____ minutes.
[2024-02-28] MEDS: Lactated Ringers 1,000 ML 100 ML IVCONT (12:57)
[2024-02-28 13:51] VITALS: BP 121/63; PULSE 60; RESP 12; TEMP 36.2; O2SAT 98
[2024-02-28 14:06] VITALS: BP 128/72; PULSE 61; RESP 17; O2SAT 99
[2024-02-28 14:18] VITALS: BP 118/67; PULSE 66; RESP 17; TEMP 36.1; O2SAT 98
--- NOTE | 2024-02-28 14:32 | OP_ITS ---
DATE OF SERVICE: 02/28/2024 SURGEON: Jd Tripp MD INDICATIONS: Schatzki ring with dysphagia. PREOPERATIVE DIAGNOSIS: POSTOPERATIVE DIAGNOSIS: PROCEDURE PERFORMED: Upper endoscopy with balloon dilation and biopsy. ESTIMATED BLOOD LOSS: COMPLICATIONS: ANESTHESIA: Monitored anesthesia care. ASSISTANTS: SPECIMENS: DESCRIPTION OF PROCEDURE: A history and physical was performed. The risks and benefits of the procedure were explained to the patient and informed consent was obtained. The patient was placed in the left lateral decubitus position. The Olympus video gastroscope was introduced into the esophagus, stomach, and duodenum. Examination was performed and the scope was removed. She tolerated the procedure well and was returned to recovery area in stable condition. FINDINGS: Esophagus: The esophagus showed normal mucosa. There was a nonobstructive Schatzki ring. The scope easily passed through this. Stomach: The stomach showed scattered erythema in the antrum consistent with gastritis. Biopsies were obtained from the antrum. Duodenum: The bulb and 2nd portion showed changes of duodenitis involving the bulb. Balloon dilation of the EG junction to 20 mm was performed with no immediate complications. The balloon was inflated for 60 seconds at its recommended pressure and then removed. The esophagus was brightly patent at the termination of the procedure. IMPRESSION: 1. Schatzki ring. 2. Gastritis. 3. Duodenitis. RECOMMENDATION: Follow up the biopsy results. MD POLLO Hester/JESSE / [id number]
== END 2024-02-28 15:25 | disposition home or self-care (01) ==
PROVIDERS: PCP Family Medicine; Visit Provider Internal Medicine Gastroenterology
PROC: (CPT 43249; principal; 2024-02-28 13:00)
DX: R13.10 Dysphagia, unspecified (principal); K22.2 Esophageal obstruction; K29.50 Unspecified chronic gastritis without bleeding; R19.7 Diarrhea, unspecified; K29.80 Duodenitis without bleeding; I69.354 Hemiplegia and hemiparesis following cerebral infarction affecting left non-dominant side; I10 Essential (primary) hypertension; R09.89 Other specified symptoms and signs involving the circulatory and respiratory systems; G62.9 Polyneuropathy, unspecified; G47.33 Obstructive sleep apnea (adult) (pediatric); Z79.899 Other long term (current) drug therapy; Z88.8 Allergy status to other drugs, medicaments and biological substances; Z85.3 Personal history of malignant neoplasm of breast; Z92.21 Personal history of antineoplastic chemotherapy
CPT/HCPCS: 43249; 43239; 88305; 88313; 88342; C1726; J2003; J2250; J2704

== ENCOUNTER → 2024-11-12 07:37 | Outpatient (REF) | payer MEDICARE, SELFPAY ==
--- OUTSIDE RECORDS SUMMARY | 2024-02-28 09:00 | XMS_ITS ---
Author Organization [facility] Address [address] [place] [address] Drive [address] [place] [id number] Care Team Providers Care Art Museum Aide Name Role Phone Alison Snow Primary Care Provider Jd Chaidez Jr REASON FOR VISIT dysphagia Encounters Encounter Location Date Provider Diagnosis [facility] Out[facility] [address] [place] [phone] 02/28/2024 Jd Tripp Jr Schatzki's ring K22.2 and Dysphagia R13.10 Assessments Encounter Date Diagnosis (ICD Code) Assessment Notes Treatment Notes Treatment Clinical Notes Section Notes 02/28/2024 Schatzki's ring (ICD-10 - K22.2) 02/28/2024 Dysphagia (ICD-10 - R13.10) Plan Of Treatment No Information Progress Notes * BLADE NINA RDOB:1950 (74 yo F)Acc No.[id number]:02/28/2024 EGD/MAC Patient: Jose M BLADE PICKERING Provider: Jose M Tripp MD :1950 A ge:73 Y S ex:Female Date:02/28/2024 Address:[address] [place] [phone] Pcp:Alison Snow Subjective: * Chief Complaints: * 1 . Dysphagia. * Medical History: Objective: * Vitals: Assessment: * Assessment: 1. S chatzki's ring - K22.2 (Primary) 2 . D ysphagia - R13.10 ? Plan: * Treatment: * Procedure Codes: 4 3249 ESOPH ENDOSCOPY, DILATION, [address]234 UPPER GI ENDOSCOPY, BIOPSY, Modifiers: 59 * * The named appointment provid er may or may not be the originator of this progress note, and it is not deemed complete until electronically signed by the appointment provider. Sign off status: Pending * Provider: Jose M Tripp MD Date: 1 Generated for Gretta hopkins/Blake/Chiaraitting on: 0 11/12/2024 07:39 AM EDT
--- NOTE | 2024-11-12 07:41 | CA_ITS ---
Transthoracic Echocardiogram Patient (Last, First, Middle): Josephine Ugarte R Gender: Female Date of : 1950 Age: 74 Procedure Date: 11/12/2024 Procedure Type: Transthoracic Echocardiogram Location: OP Height: 152.4 cm Weight: 63.5 kg BSA: 1.60 m2 Heart Rate: bpm BP: 128 / 78 mmHg [employer] Builder: TO Referring MD: Alison Snow MD Symptoms: I77.810 THORACIC AORTIC ECTASIA Study Quality: Adequate Conclusions: - The left ventricular systolic function is mildly decreased. The calculated ejection fraction is 52% by biplane method. - Evidence suggests grade II (moderate) diastolic dysfunction. - There is moderate septal and moderate basal asymmetric hypertrophy. - There is mild aortic valve regurgitation. - There is mild mitral annular calcification. - There is mild dilatation of the ascending aorta measuring 4.30 cm. Findings Left Ventricle Normal left ventricular cavity size. The left ventricular systolic function is mildly decreased. The calculated ejection fraction is 52% by biplane method. There is no evidence of regional wall motion abnormalities. Evidence suggests grade II (moderate) diastolic dysfunction. There is moderate septal and moderate basal asymmetric hypertrophy. Right Ventricle Normal right ventricular cavity size. There is low normal right ventricular systolic function. Atria The left atrium is mildly dilated. The right atrium is normal in size. Aortic Valve There is a normal trileaflet aortic valve. There is no aortic valve stenosis. There is mild aortic valve regurgitation. Mitral Valve There is mild mitral annular calcification. There is trace mitral valve regurgitation. There is no mitral valve stenosis. Pulmonic Valve There is trace pulmonic valve regurgitation. Tricuspid Valve There is trace tricuspid valve regurgitation. There is no evidence of pulmonary hypertension. Great Vessels The aortic arch is normal in size. There is mild dilatation of the ascending aorta measuring 4.30 cm. Venous The inferior vena cava is normal in size and collapses greater than 50% with inspiration. Pericardium/Pleural There is no evidence of pericardial effusion. Prior Study Comparison No prior study available for comparison. Measurements 2D Linear Measurements IVSd: 1.05 0.6-0.9/0.6-1.0 cm LVIDd: 4.49 3.9-5.3/4.2-5.9 cm LVIDd Index: 2.81 2.4-3.2/2.2-3.1 cm/m2 LVIDs: 3.03 2.0-3.6 cm LVPWd: 0.81 0.7-1.1 cm LA Diam: 3.10 2.7-3.8/3.0-4.0 cm LAIDs Index: 1.94 1.5-2.3 cm/m2 LV Mass: 172.40 67-162/88-224 g LV Mass Index: 107.75 43-95/49-115 g/m2 LVOT Diam: 2.00 3.0+(-)1.3 cm 2D Systolic Function EF 4C: 54.60 >55% EF 2C: 50.60 >55% EF BiP: 52.30 >55% Mitral Valve MV VTI: 0.28 MV Pk Cj: 0.98 MV Mn Cj: 0.48 MV Pk Grad: 4.00 MV Mn Grad: 1.00 MV Pk E: 0.77 MV PK A: 0.55 MV Decel Time: 156.00 E/A: 1.40 E'Lateral: 8.70 E'Medial: 3.81 E/E' Med: 20.20 E/E' Lat: 8.90 PHT: 46.00 MVA PHT: 4.78 MVA Continuity: 2.76 Decel Gaston: 4.95 Aortic Valve AoV Pk Cj: 1.38 AoV Mn Cj: 0.96 AoV VTI: 0.30 AoV Pk Grad: 8.00 Aov Mn Grad: 4.00 FARNAZ Cont.VTI: 2.58 AI Pk Cj: 4.38 AI Gaston: 1.91 LVOT LVOT Pk Cj: 1.11 LVOT Mn Cj: 0.77 LVOT VTI: 0.25 LVOT Pk Grad: 5.00 LVOT Mn Grad: 3.00 LVOT Diam: 2.00 LVOT Area: 3.14 Diastolic Function MV Pk E: 0.77 MV Pk A: 0.55 E/A: 1.40 E'Medial: 3.81 E/E' Med: 20.20 E' Laterial: 8.70 E/E' Lat: 8.90 Right Ventricle TAPSE (mm): 17.10 TVS' Cj: 9.90 Tricuspid Valve TR Pk Cj: 2.32 TR Pk Grad: 22.00 RA Press: 3.00 RVSP: 25.00 Great Vessels Aorta Sinus of Valsalva: 3.59 2.0-3.5 cm Ao Asc: 4.30 2.1-3.4 cm Ao Arch: 3.50 Updated in Other Vendor System with Status of Final Young Pina MD electronically signed on 11/13/2024 8:59:12 AM with status of Final
== END ==
LOC: HO.CARD 07:37
PROVIDERS: PCP Family Medicine; Visit Provider Family Medicine
DX: I77.810 Thoracic aortic ectasia (principal)
CPT/HCPCS: 93306

== ENCOUNTER → 2024-11-12 07:41 | Outpatient (BNV) | payer MEDICARE, SELFPAY | PROVIDERS: PCP Family Medicine; Visit Provider Internal Medicine | DX: I77.810 Thoracic aortic ectasia (principal); I34.81 Nonrheumatic mitral (valve) annulus calcification; I35.1 Nonrheumatic aortic (valve) insufficiency | CPT/HCPCS: 93306 ==

== ENCOUNTER 2024-11-15 08:23 | Outpatient (REF) | payer MEDICARE, SELFPAY ==
--- OUTSIDE RECORDS SUMMARY | 2024-02-28 09:00 | XMS_ITS ---
Author Organization [facility] Address [address] [place] [address] Drive [address] [place] [phone] Care Team Providers Care Hotel General Manager Name Role Phone Alison Snow Primary Care Provider Jd Chaidez Jr REASON FOR VISIT dysphagia Encounters Encounter Location Date Provider Diagnosis [facility] Outpatient [address] [place] [phone] 02/28/2024 Jd Tripp Jr Schatzki's ring K22.2 and Dysphagia R13.10 Assessments Encounter Date Diagnosis (ICD Code) Assessment Notes Treatment Notes Treatment Clinical Notes Section Notes 02/28/2024 Schatzki's ring (ICD-10 - K22.2) 02/28/2024 Dysphagia (ICD-10 - R13.10) Plan Of Treatment No Information Progress Notes * BLADE NINA RDOB:1950 (74 yo F)Acc No.[id number]:02/28/2024 EGD/MAC Patient: Jose M BLADE PICKERING Provider: Jose M Tripp MD :1950 A ge:73 Y S ex:Female Date:02/28/2024 Address:[address] [place] [id number] Pcp:Alison Snow Subjective: * Chief Complaints: * 1 . Dysphagia. * Medical History: Objective: * Vitals: Assessment: * Assessment: 1. S chatzki's ring - K22.2 (Primary) 2 . D ysphagia - R13.10 ? Plan: * Treatment: * Procedure Codes: 4 3249 ESOPH ENDOSCOPY, DILATION, [address]2001 UPPER GI ENDOSCOPY, BIOPSY, Modifiers: 59 * * The named appointment provid er may or may not be the originator of this progress note, and it is not deemed complete until electronically signed by the appointment provider. Sign off status: Pending * Provider: Jose M Tripp MD Date: 1 Generated for Gretta hopkins/Blake/Chiaraitting on: 0 11/15/2024 08:31 AM EDT
--- NOTE | ~2024-11-15 | MR_ITS ---
EXAMINATION: MR BRAIN AND SELLA WITHOUT AND WITH CONTRAST CLINICAL INFORMATION: Pituitary mass, follow-up examination. COMPARISON: 08/29/2023 MR brain and sella. TECHNIQUE: Multiplanar, multisequence MRI of the brain and sella was obtained before and after the intravenous administration of 3 mL Gadavist. Examination was performed on a 1.5 Lauren Siemens high-field unit. FINDINGS: There is mild motion artifact on multiple pulsing sequences. This decreases the sensitivity of the exam. SELLA: The pituitary gland has a convex superior border. There is mild incompetence of the diaphragma sella. The infundibulum is normal in thickness and is essentially midline. There is no abnormality of the suprasellar structures, cavernous sinuses, or parasellar structures. The optic chiasm and nerves appear normal. Within the anterior aspect of the gland, right side, there is a stable oval focus of differential hypoenhancement measuring 3 x 4 x 3 mm, consistent with a pituitary microadenoma. This is unchanged when measured using similar technique. IMAGED BRAIN: There is no diffusion restriction. There is no intracranial hemorrhage, acute infarction, mass effect, or edema. Ventricles, sulci, and cisterns are mildly prominent, in keeping with age-related cerebral and cerebellar involutional changes. 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 No shift of midline. No abnormal hemosiderin deposition is identified. There are scattered punctate and minimally confluent foci of white matter T2 hyperintensity in the periventricular, subcortical, and hemispheric deep white matter. These foci are nonspecific but statistically most likely relate to small vessel ischemic changes. 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 There are also numerous small prominent perivascular spaces in these regions. Midline structures appear normally formed. Posterior fossa structures appear normal. Cerebellar tonsils are appropriately located. Major flow voids are preserved within the skull base. The globes and orbital contents demonstrate no abnormalities. There are bilateral lens replacement. Paranasal sinuses are clear bilaterally. The mastoids and tympanic cavities are normally aerated. Extracranial soft tissues demonstrate no abnormalities. No suspicious bone marrow changes are evident. Atlantoaxial joint demonstrates mild degenerative changes. MR/MR head/brain wo/w con IMPRESSION: 1. There is a stable and unchanged 3 x 4 x 3 mm oval focus of hypoenhancement within the right anterior pituitary gland consistent with a stable microadenoma. 2. There is no evidence of intracranial hemorrhage, acute infarction, mass effect, edema, or abnormal enhancement. 3. There is stable mild to moderate white matter changes of small vessel ischemia. Electronically signed by: Donavon Pillai MD 11/15/2024 10:21 AM EDT
[2024-11-15] MEDS: gadobutroL 2 ML VIAL IVPUSH ×2 (10:01)
== END 2024-11-15 08:24 | disposition home or self-care (01) ==
LOC: HO.MRI 08:23
PROVIDERS: PCP Family Medicine; Visit Provider Family Medicine
DX: E23.6 Other disorders of pituitary gland (principal)
CPT/HCPCS: 70553; A9585

== ENCOUNTER → 2024-11-15 08:30 | Outpatient (BNV) | payer MEDICARE, SELFPAY | PROVIDERS: PCP Family Medicine; Visit Provider Radiology Diagnostic Radiology | DX: D35.2 Benign neoplasm of pituitary gland (principal) | CPT/HCPCS: 70553 ==